=== PATIENT | male | born 1980 | race Caucasian/White ===

== ENCOUNTER 2016-09-08 18:18 | Emergency (ER) | payer MEDICAID ==
[~2016-09-08] VITALS: Ht 175.3 cm; Wt 115.0 kg
[~2016-09-08 18:18] MED LIST: DOCU-144 PO; HYDR30CR75 PR; TRAM50TA2 PO
[2016-09-08 18:39] VITALS: Ht 175.3 cm; Wt 115.0 kg
[2016-09-08] MEDS ORDERED: ONDANSETRON (ODT) 4 MG TAB ODT STA (19:24)
[2016-09-08] MEDS ORDERED: HYDROmorphONE 2 MG/ML SYG IM STA (19:24)
[2016-09-08] MEDS ORDERED: KETOROLAC 30 MG INJ IM STA (19:24)
--- NOTE | 2016-09-08 20:01 | RADRPT ---
PROCEDURE: XR Lumbar Spine. CLINICAL INDICATION: Low back pain. TECHNIQUE: Two views of the lumbar spine available for review COMPARISON: None available FINDINGS: There is normal mineralization, architecture and alignment. There is a mild levoscoliosis of the lum bar spine. No fractures or osseous lesions are identified. No subluxation is identified. The disk spaces are unremarkable. The facet joints are unremarkable. The soft tissues are unremarkable. IMPRESSION: Mild levoscoliosis Otherwise unremarkable lumbar spine. RPTAT: HG[facility] .Mark Mora MD, MD Date Time Electronically viewed and signed by .Mark Mora MD, on 09/08/2016 20:01 .B/
[2016-09-08] MEDS ORDERED: IBUP-1542 PO (20:43)
[2016-09-08] MEDS ORDERED: HYDR-902 PO (20:43)
--- NOTE | 2016-09-08 20:56 | ERD ---
ER Documentation Chief Complaint Date/Time DATE: 09/08/16 TIME: 20:55 Chief Complaint Back pain lifted a 36 lbs special kid HPI Patient is a 35-year-old male with no medical problems who presents with back pain. The patient says that he was lifting a child this morning and had acute onset of back pain. He says that he cannot walk because of the pain. He said that it is a bad pain and is sharp in nature. It is worse with movement. He has had a history with his discs in the past. He tried Advil. He has had no difficulty with urination. There was no incontinence. There is no fever. ROS All systems reviewed and are negative except as per history of present illness. Medications Home Meds Active Scripts Hydrocodone/Acetaminophen (Macfarlan 10-325 Tablet) 1 Each Tablet, 1 TAB PO Q6H Y for PAIN, #12 TAB Prov:JEANNETTE HARTMAN MD 09/08/16 Ibuprofen* (Motrin*) 600 Mg Tab, 600 MG PO Q8, #30 TAB Prov:JEANNETTE HARTMAN MD 09/08/16 Docusate Sodium* (Colace*) 100 Mg Capsule, 100 MG PO TID, #30 Prov:CYRUS GUAJARDO MD 10/19/14 Tramadol HCl (Tramadol HCl) 50 Mg Tab, 50 MG PO Q4 Y for PAIN, #14 TAB Prov:CYRUS GUAJARDO MD 10/19/14 Hydrocortisone Acetate* (Anusol-HC*) 30 Gm Cream.gm., 1 APPLIC MD TID for 7 Days , TUB Prov:CYRUS GUAJARDO MD 10/19/14 Allergies Allergies: Coded Allergies: No Known Allergy (Unverified , 09/08/16) PMhx/Soc Medical and Surgical Hx: pt denies Medical Hx, pt denies Surgical Hx Hx Alcohol Use: No Hx Substance Use: No Hx Tobacco Use: No Smoking Status: Never smoker FmHx Family History: diabetes Physical Exam Vitals Vital Signs Date Time Temp Pulse Resp B/P Pulse Ox O2 Delivery O2 Flow Rate FiO2 09/08/16 18:39 98.1 86 20 130/74 98 Physical Exam Const: Moderate distress secondary to pain Head: Atraumatic Eyes: Normal Conjunctiva ENT: Normal External Ears, Nose and Mouth. Neck: Full range of motion..~ No meningismus. Resp: Clear to auscultation bilaterally Cardio: Regular rate and rhythm, no murmurs Abd: Soft, non tender, non distended. Normal bowel sounds Skin: No petechiae or rashes Back: Lower back pain bilaterally without step-off or deformity noted Ext: No cyanosis, or edema Neur: Awake and alert, patient is able to extend legs bilaterally Psych: Normal Mood and Affect Results 24 hrs Current Medications Medications (Trade) Dose Ordered Sig/Nerissa Route PRN Reason Start Time Stop Time Status Last Admin Dose Admin Hydromorphone HCl (Dilaudid) 2 mg ONCE STAT IM 09/08/16 19:24 09/08/16 19:26 DC 09/08/16 19:31 Ketorolac Tromethamine (Toradol) 30 mg ONCE STAT IM 09/08/16 19:24 09/08/16 19:26 DC 09/08/16 19:30 Ondansetron HCl (Zofran Odt) 4 mg ONCE STAT ODT 09/08/16 19:24 09/08/16 19:26 DC 09/08/16 19:31 Procedures/MDM X-ray of the lumbar spine is negative per radiology. Patient is a 35-year-old male presents with acute onset of back pain. I believe this is most likely lumbar muscular skeletal back pain with possible impingement of the nerve. However I doubt cauda equina syndrome, epidural hematoma, or epidural abscess. I believe outpatient management is appropriate. However the patient will need close follow-up with the local clinics within 24 -48 hours for reevaluation. The patient can return sooner for any worsening symptoms. The patient will be given a prescription for ibuprofen and Macfarlan. Departure Diagnosis: Primary Impression: Back pain Back pain location: low back pain Chronicity: acute Back pain laterality: bilateral Sciatica presence: without sciatica Qualified Code: M54.5 - Acute bilateral low back pain without sciatica Condition: Fair Patient Instructions: Back Pain (Acute Or Chronic) [facility] Usted se aguilar hecho un examen mdico de control que le indica que no est en shruti condicin que requiera tratamiento urgente en el Departamento de Emergencia. Un estudio ms profundo y el tratamiento de white condicin pueden esperar sin ningn riesgo hasta que usted sea atendida/o en el consultorio de white mdico o shruti cl lars. Es responsabilidad suya arreglar shruti shakira para el seguimiento del dulce. MANEJO DE CONDICIONES NO URGENTES EN EL FUTURO 1) Si usted tiene un mdico de atencin primaria: Usted debera llamar a white mdico de atencin primaria antes de venir al departamento de emergencia. Despus de las horas de consultorio, white doctor o white asociado/a est disponible por telfono. El mdico o enfermero de alejandro en el servicio telefnico puede asesorarle por brandt medio para atender el problema, o dulce contrario se puede programar shruti shakira. 2) Si usted no tiene un mdico de atencin primaria: Llame al mdico o clnica de referencia que aparece abajo sunil las horas de consultorio para hacer shruti shakira para que le vean. CLINICAS: [facility] [phone] [facility] [phone] [facility]. [facility] [phone] [facility] [place] [phone] [facility]. [place] [phone] [facility]. [phone] [address] Additional Instructions: Llame al doctor MAANA y chris shruti SHAKIRA PARA DENTRO DE 1-2 BARROS.Dgale a la secretaria que nosotros le instruimos hacer esta shakira.Avise o llame si white condicin se empeora antes de la shakira. Regresa aqui si peor o no mejor. JEANNETTE HARTMAN MD September 08, 2016 20:56
[2016-09-08 21:13] VITALS: BP 132/77; PULSE 71; RESP 20; TEMP 98.2
== END 2016-09-08 21:17 | disposition home or self-care (01) ==
LOC: FTE 18:18
DX: M54.5 Low back pain (principal)
CPT/HCPCS: 72100; 96372; J1170; J1885; Z7502; Z7610

== ENCOUNTER 2017-09-05 12:28 | Emergency (ER) | END 2017-09-05 13:54 | disposition home or self-care (01) ==